=== PATIENT | female | born 2000 | race African-American/Black ===

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

== ENCOUNTER 2020-09-03 13:08 | Emergency (ER) | payer OTHER | END 2020-09-03 15:18 | disposition home or self-care (01) | LOC: ERS 13:08 | DX: H10.021 Other mucopurulent conjunctivitis, right eye (principal) | CPT/HCPCS: 99282 ==

== ENCOUNTER 2020-10-24 13:47 | Emergency (ER) | payer OTHER | END 2020-10-24 17:49 | disposition home or self-care (01) | LOC: ERS 13:47 | DX: R09.1 Pleurisy (principal) | CPT/HCPCS: 71045; 93005 ==

== ENCOUNTER 2024-05-19 09:50 | Day surgery (SDC) | payer OTHER ==
[2024-05-19] MEDS ORDERED: Acetaminophen 500 MG TAB ONE (09:56)
[2024-05-19] MEDS: Acetaminophen 500 MG TAB PO SCH (09:57)
[2024-05-19] MEDS: Iron Sucrose Complex 500 MG in Sodium Chloride 0.9% 250 ML 250 ML IVPB SCH (10:29)
[2024-05-19 14:45] VITALS: BP 106/51; TEMP 98.3
== END 2024-05-19 15:16 | disposition home or self-care (01) ==
LOC: ONC/OP 09:50
PROVIDERS: ATTEND Advanced Practice Midwife
DX: O99.019 Anemia complicating pregnancy, unspecified trimester (principal); Z3A.00 Weeks of gestation of pregnancy not specified
CPT/HCPCS: 96365; 96366; J1756; J7050

== ENCOUNTER 2024-06-29 09:06 | Day surgery (SDC) | payer OTHER ==
[2024-06-29] MEDS ORDERED: Acetaminophen 500 MG TAB ONE (09:56)
[2024-06-29] MEDS: Acetaminophen 500 MG TAB PO SCH (09:58)
[2024-06-29] MEDS: Iron Sucrose Complex 500 MG in Sodium Chloride 0.9% 250 ML 250 ML IVPB SCH (10:22)
[2024-06-29 14:48] VITALS: BP 118/58; TEMP 98
== END 2024-06-29 14:53 | disposition home or self-care (01) ==
LOC: ONC/OP 09:06
PROVIDERS: ATTEND Advanced Practice Midwife
DX: O99.013 Anemia complicating pregnancy, third trimester (principal); O99.283 Endocrine, nutritional and metabolic diseases complicating pregnancy, third trimester; E28.2 Polycystic ovarian syndrome; O09.93 Supervision of high risk pregnancy, unspecified, third trimester; O99.343 Other mental disorders complicating pregnancy, third trimester; F43.10 Post-traumatic stress disorder, unspecified; F31.9 Bipolar disorder, unspecified; O99.213 Obesity complicating pregnancy, third trimester; O35 Maternal care for known or suspected fetal abnormality and damage; D56.3 Thalassemia minor; O99.323 Drug use complicating pregnancy, third trimester; F12.90 Cannabis use, unspecified, uncomplicated; Z3A.38 38 weeks gestation of pregnancy; Z62.810 Personal history of physical and sexual abuse in childhood
CPT/HCPCS: 96365; 96366; J1756; J7050